=== PATIENT | female | born 1935 | race Asian ===

== ENCOUNTER 2021-06-27 18:25 | Emergency (ER) | payer MEDICARE ==
[2021-06-27] MEDS ORDERED: Acetaminophen 325 MG TAB ONE (19:51)
[2021-06-27] MEDS ORDERED: Morphine 2 MG/ML VIAL ONE (19:52)
[2021-06-27 19:56] LABS: #Monocytes 0.9 10x3/uL (0.0-1.1); #Neutrophils 9.4 10x3/uL (1.5-8.4); %Basophils 0.3 % (0.0-2.0); %Eosinophils 0.1 % (0.0-6.0); %Lymphocytes 12.3 % (18.0-47.0); %Monocytes 7.9 % (0.0-10.0); Hemoglobin 9.6 g/dL (12.0-15.5); Mean Corpuscular HGB CONC 32.7 g/dL (32.0-36.0); Mean Corpuscular Hemoglobin 30.5 pg (27.0-33.0); Mean Corpuscular Volume 93.3 fl (81.6-98.3); Mean Platelet Volume 10.1 fl (7.4-10.4); Platelet Count 265 10x3/uL (150-450); RBC Distribution Width 13.2 % (11.5-14.5); Red Blood Cell (RBC) Count 3.15 10x6/uL (3.90-5.03); White Blood Cell (WBC) Count 11.9 10x3/uL (3.5-10.5)
[2021-06-27 20:11] LABS: ALT (SGPT) 26 U/L (8-55); AST (SGOT) 42 U/L (5-34); Albumin 4.2 g/dL (3.4-4.8); Alkaline Phosphatase 50 U/L (40-110); Anion Gap 17 mmol/L (10-20); BUN (Urea Nitrogen) 48 mg/dL (9.8-20.1); Bilirubin, Total 0.4 mg/dL (0.2-1.2); Calc. Creatinine Clearance 0 mL/min (70-130); Carbon Dioxide 17 mmol/L (23-31); Chloride 104 mmol/L (98-107); Globulin 3.8 g/dL (2.4-3.5); Glucose 125 mg/dL (83-110); Potassium 4.8 mmol/L (3.5-5.1); Sodium 133 mmol/L (136-145)
== END 2021-06-27 21:51 | disposition home or self-care (01) ==
LOC: CSHERS 18:25
DX: M54.2 Cervicalgia (principal); I10 Essential (primary) hypertension; K21.9 Gastro-esophageal reflux disease without esophagitis
CPT/HCPCS: 71045; 73030; 80053; 84484; 85025; 93005; J2270; 93010; 96374

== ENCOUNTER 2022-02-27 16:43 | Inpatient (IN) | payer MEDICARE, MEDICAID ==
[2022-02-27 18:10] LABS: #Eosinphils 0.2 10x3/uL (0.0-0.5); #Monocytes 0.7 10x3/uL (0.0-1.1); #Neutrophils 3.2 10x3/uL (1.5-8.4); %Basophils 0.7 % (0.0-2.0); %Eosinophils 2.6 % (0.0-6.0); %Lymphocytes 29.7 % (18.0-47.0); %Monocytes 11.4 % (0.0-10.0); %Neutrophils 55.4 % (40.0-75.0); Hemoglobin 10.2 g/dL (12.0-15.5); Mean Corpuscular HGB CONC 33.8 g/dL (32.0-36.0); Mean Corpuscular Hemoglobin 30.9 pg (27.0-33.0); Mean Corpuscular Volume 91.5 fl (81.6-98.3); Mean Platelet Volume 9.7 fl (7.4-10.4); Platelet Count 291 10x3/uL (150-450); RBC Distribution Width 12.7 % (11.5-14.5); White Blood Cell (WBC) Count 5.8 10x3/uL (3.5-10.5)
[2022-02-27 18:24] LABS: Bilirubin Neg (Negative); Blood, Urine Negative (Negative); Clarity Clear (Clear); Glucose, Urine (Dipstick) Normal (Negative); Ketone, Urine Negative (Negative); Leukocyte 100 (Negative); Nitrite Negative (Negative); Protein, Urine (Dipstick) 30 mg/dl (Neg-Trace); Urobilinogen Normal mg/dL (Less than 2)
[2022-02-27 18:24] LABS: ALT (SGPT) 11 U/L (8-55); AST (SGOT) 26 U/L (5-34); Alkaline Phosphatase 47 U/L (40-110); Anion Gap 15 mmol/L (10-20); BUN (Urea Nitrogen) 84 mg/dL (9.8-20.1); Bilirubin, Total 0.2 mg/dL (0.2-1.2); CK (CPK) 49 U/L (29-168); Calc. Creatinine Clearance 0 mL/min (70-130); Calcium 9.5 mg/dL (7.8-10.44); Carbon Dioxide 18 mmol/L (23-31); Chloride 103 mmol/L (98-107); Globulin 3.3 g/dL (2.4-3.5); Glucose 117 mg/dL (83-110); Lipase 112 U/L (8-78); Magnesium 2.3 mg/dL (1.6-2.6); Potassium 5.3 mmol/L (3.5-5.1); Protein, Total 7.3 g/dL (5.8-8.1); Sodium 131 mmol/L (136-145)
[2022-02-27 18:34] LABS: Bacteria/HPF Rare-Few HPF (None Seen); RBC/HPF 0-3 HPF (0-3); Squamous Epithelial 0-3 HPF (0-3); WBC/HPF 0-3 HPF (0-3)
[2022-02-27] MEDS ORDERED: Calcium Carbonate 500 MG ChewTAB PO PRN (20:54)
[2022-02-27] MEDS ORDERED: Acetaminophen 325 MG TAB PO PRN (20:54)
[2022-02-27] MEDS ORDERED: Ondansetron ODT 4 MG TAB PO PRN (20:54)
[2022-02-27] MEDS ORDERED: Ondansetron PF 4 MG/2 ML Vial IVP PRN (20:54)
[2022-02-27] MEDS ORDERED: Pantoprazole 40 MG VIAL IVP SCH (21:45)
[2022-02-27] MEDS: Sodium Chloride 0.9% 1,000 ML IV SCH (22:20)
[2022-02-27 22:27] LABS: Troponin I 0.011 ng/mL (< 0.028)
[2022-02-27 22:52] VITALS: BMI 14.5
[2022-02-28 05:03] LABS: #Eosinphils 0.2 10x3/uL (0.0-0.5); #Monocytes 0.8 10x3/uL (0.0-1.1); #Neutrophils 3.5 10x3/uL (1.5-8.4); %Basophils 0.5 % (0.0-2.0); %Eosinophils 3.2 % (0.0-6.0); %Lymphocytes 28.3 % (18.0-47.0); %Monocytes 12.5 % (0.0-10.0); %Neutrophils 55.2 % (40.0-75.0); Mean Corpuscular HGB CONC 33.8 g/dL (32.0-36.0); Mean Corpuscular Hemoglobin 31.3 pg (27.0-33.0); Mean Corpuscular Volume 92.4 fl (81.6-98.3); Mean Platelet Volume 9.8 fl (7.4-10.4); Platelet Count 262 10x3/uL (150-450); RBC Distribution Width 12.8 % (11.5-14.5); Red Blood Cell (RBC) Count 2.88 10x6/uL (3.90-5.03); White Blood Cell (WBC) Count 6.3 10x3/uL (3.5-10.5)
[2022-02-28 05:19] LABS: Anion Gap 12 mmol/L (10-20); BUN (Urea Nitrogen) 68 mg/dL (9.8-20.1); Calc. Creatinine Clearance 12 mL/min (70-130); Calcium 8.5 mg/dL (7.8-10.44); Carbon Dioxide 18 mmol/L (23-31); Chloride 111 mmol/L (98-107); Glucose 114 mg/dL (83-110); Iron 73 ug/dL (50-170); Iron Binding Capacity, Total 279 mcg/dL (265-497); Lipase 109 U/L (8-78); Potassium 4.8 mmol/L (3.5-5.1); Sodium 136 mmol/L (136-145)
[2022-02-28 05:32] LABS: Iron 75 ug/dL (50-170); Iron Binding Capacity, Total 286 mcg/dL (265-497)
[2022-02-28 05:48] LABS: Ferritin 130.36 ng/mL (10-291)
[2022-02-28] MEDS: Sodium Chloride 0.9% 1,000 ML IV SCH ×2 (07:10→11:31)
[2022-02-28] MEDS ORDERED: Pantoprazole 40 MG VIAL IVP SCH (09:00)
[2022-02-28] MEDS: Enoxaparin Sodium 30 MG/0.3 ML SYRINGE SC SCH (09:16)
[2022-02-28] MEDS: Hydrochlorothiazide 25 MG TAB PO SCH (09:16)
[2022-02-28] MEDS: Valsartan 80 MG TAB PO SCH (09:39)
[2022-03-01] MEDS: Sodium Chloride 0.9% 1,000 ML IV SCH (00:22)
[2022-03-01] MEDS ORDERED: Melatonin 3 MG TAB PO SCH (00:30)
[2022-03-01] MEDS ORDERED: cloNIDine 0.1 MG TAB PO SCH (01:30)
[2022-03-01 06:03] LABS: Anion Gap 11 mmol/L (10-20); BUN (Urea Nitrogen) 44 mg/dL (9.8-20.1); Calc. Creatinine Clearance 16 mL/min (70-130); Calcium 8.4 mg/dL (7.8-10.44); Carbon Dioxide 19 mmol/L (23-31); Chloride 113 mmol/L (98-107); Glucose 94 mg/dL (83-110); Potassium 4.8 mmol/L (3.5-5.1); Sodium 138 mmol/L (136-145)
[2022-03-01] MEDS ORDERED: Sodium Chloride 0.9% 1,000 ML IV SCH (07:39)
[2022-03-01] MEDS ORDERED: Multivit, Therapeutic 1 TAB PO SCH (09:00)
[2022-03-01] MEDS ORDERED: Pantoprazole 40 MG VIAL IVP SCH (09:00)
[2022-03-01] MEDS: Enoxaparin Sodium 30 MG/0.3 ML SYRINGE SC SCH (09:41)
[2022-03-01] MEDS: Hydrochlorothiazide 25 MG TAB PO SCH (09:41)
[2022-03-01] MEDS: Valsartan 80 MG TAB PO SCH (09:42)
[2022-03-01 13:12] VITALS: BP 137/67; TEMP 98.3
== END 2022-03-01 13:16 | disposition home health service (06) | DRG 682 ==
LOC: CSHERS 16:43 → CSHTELE 21:37
PROVIDERS: ADMIT Family Medicine; ATTEND Internal Medicine
DX: N17.9 Acute kidney failure, unspecified (principal); E43 Unspecified severe protein-calorie malnutrition; Z68.1 Body mass index [BMI] 19.9 or less, adult; K21.9 Gastro-esophageal reflux disease without esophagitis; I10 Essential (primary) hypertension; D64.9 Anemia, unspecified; E86.0 Dehydration; E87.5 Hyperkalemia; R53.81 Other malaise; R10.9 Unspecified abdominal pain; Z90.49 Acquired absence of other specified parts of digestive tract
CPT/HCPCS: 36415; 74176; 80048; 80053; 81003; 81015; 82550; 82607; 82728; 82746; 83540; 83550; 83690; 83735; 84443; 84484; 85025; 93005; 93010; C9113; J1650; J7050